=== PATIENT | female | born 1985 | race Caucasian/White ===

== ENCOUNTER 2020-11-21 00:02 | Emergency (ER) | payer BC ==
[~2020-11-21] VITALS: Ht 172.7 cm; Wt 140.8 kg
[2020-11-21 00:41] LABS: BASOPHILS # (AUTO) 0.1 X10'3 (0-0.2); BASOPHILS % (AUTO) 0.7 % (0-1); EOSINOPHILS # (AUTO) 0.2 X10'3 (0-0.9); EOSINOPHILS % (AUTO) 2.3 % (0-6); HEMOGLOBIN 12.9 g/dl (12.0-16.0); LYMPHOCYTES # (AUTO) 2.7 X10'3 (1.1-4.8); LYMPHOCYTES % (AUTO) 31.5 % (21-51); MEAN CORPUSCULAR HEMOGLOBIN 27.8 PG (27.0-31.0); MEAN CORPUSCULAR HGB CONC 33.9 g/dL (33.0-36.5); MEAN CORPUSCULAR VOLUME 81.9 FL (78-98); MONOCYTES # (AUTO) 0.6 X10'3 (0-0.9); MONOCYTES % (AUTO) 6.5 % (2-12); NEUTROPHILS # (AUTO) 5.1 X10'3 (1.8-7.7); PLATELET COUNT 268 X10'3 (140-440); RED BLOOD COUNT 4.63 X10'6 (4.20-5.60); RED CELL DISTRIBUTION WIDTH 13.8 % (11.5-14.5); WHITE BLOOD COUNT 8.7 X10'3 (4.5-11.0)
[2020-11-21 00:50] LABS: ALANINE AMINOTRANSFERASE 39 U/L (12-78); ALBUMIN 3.9 G/DL (3.4-5.0); ALKALINE PHOSPHATASE 93 IU/L (46-116); ANION GAP 10 (8-16); ASPARTATE AMINO TRANSFERASE 17 U/L (10-37); BILIRUBIN,TOTAL 0.3 MG/DL (0.1-1.0); BLOOD UREA NITROGEN 21 MG/DL (7-18); BUN/CREATININE RATIO 20.2 (6.6-38.0); CALCIUM 9.5 MG/DL (8.5-10.1); CHLORIDE 105 MMOL/L (99-107); CREATININE 1.04 MG/DL (0.40-0.90); GLUCOSE 102 MG/DL (70-104); LIPASE 104 U/L (73-393); POTASSIUM 3.7 MMOL/L (3.5-5.1); SODIUM 143 MMOL/L (135-145); TOTAL CARBON DIOXIDE 27.8 MMOL/L (24-32); TOTAL PROTEIN 7.9 G/DL (6.4-8.2); eGFR 61 ML/MIN
[2020-11-21] MEDS ORDERED: ondansetron/PF 4mg/2ml inj IV ONE (00:50)
[2020-11-21] MEDS ORDERED: acetaminophen 325mg tablet PO ONE (00:50)
[2020-11-21 01:12] LABS: URINE HCG NEGATIVE (NEG)
[2020-11-21] MEDS ORDERED: famotidine/PF 10 mg/ml inj IV ONE (02:30)
[2020-11-21] MEDS ORDERED: FAMO40TA73 PO (02:34)
[2020-11-21] MEDS ORDERED: ONDA4TAB12 PO (02:34)
[2020-11-21 02:45] VITALS: BP 133/76
== END 2020-11-21 02:50 | disposition home or self-care (01) ==
LOC: ER 00:03
DX: R10.11 Right upper quadrant pain (principal); R11.0 Nausea; E03.9 Hypothyroidism, unspecified; G89.29 Other chronic pain; Z98.890 Other specified postprocedural states; Z98.82 Breast implant status; Z79.899 Other long term (current) drug therapy
CPT/HCPCS: 36415; 76700; 80053; 81025; 83690; 85025; 96374; 96375; 99284; J2405; J3490